=== PATIENT | male | born 1980 | race Caucasian/White ===

== ENCOUNTER 2022-10-24 18:21 | Emergency (ER) | payer OTHER, SELFPAY ==
--- NOTE | 2022-10-24 18:40 | ED.URI ---
HPI - URI/Sore Throat General Chief Complaint: Upper Respiratory Infection Stated Complaint: sorethroat Time Seen by Provider: 10/24/22 18:45 History of Present Illness HPI Narrative: 42-year-old male presents for complaint of sore throat, body aches and flashes, onset today. He states his son tested positive for strep throat today. He currently denies cough, shortness of breath, wheezing nausea, vomiting, diarrhea. He is taking ibuprofen for symptoms. Last dose about 4 hours prior to arrival. Related Data Allergies Allergy/AdvReac Type Severity Reaction Status Date / Time No Known Allergies Allergy Verified 10/24/22 18:41 Review of Systems Review of Systems: per HPI Exam Narrative: GENERAL: well-appearing, no acute distress. EYES: conjunctivae clear ENT: Mucous membranes moist. TM pearly tejada with normal light reflex bilaterally; no tragal tenderness. Oropharynx erythematous without lesions/exudate. Tonsils absent No drooling, no hoarseness, no trismus, uvula midline. No tripod positioning, hot potato voice, or soft palate swelling. NECK: Supple. No lymphadenopathy CHEST: Clear to auscultation, breath sounds equal. No respiratory distress, speaks in full sentences. HEART: Regular and tachy No murmur heard. SKIN: Warm, dry, no rash. NEURO: Alert and oriented x3. Course Course Emergency Course: Patient is aware of diagnosis, understands and agrees to treatment plan. Anticipatory guidance given. Patient agrees to follow-up as directed and is aware of reasons to seek care at the emergency department. Portions of this record may have been created with voice recognition software Level of Care: Express Care Visit MDM - URI/Sore Throat MDM Narrative Medical decision making narrative: strep result reviewed with pt. Advise supportive treatments. Patient is appropriate for outpatient treatment and follow-up. Differential Diagnosis Differential diagnosis: Likely upper respiratory infection, viral infection and pharyngitis Discharge Plan Discharge Clinical Impression: Strep pharyngitis Patient Disposition: Home, Self-Care Condition: Stable Instructions: Antibiotic Form, Strep Throat (ED) Additional Instructions: - Take the antibiotic as directed. Fever and sore throat typically resolve within one to three days. Most patients can return to work after 12 to 24 hours of antibiotic therapy, provided you are fever free and otherwise well. -Eat and drink things that are easy to swallow, like soft foods, cool liquids, tea with honey, or popsicles . -Salt water gargles and/or may use topical anesthetic ( Chloraseptic spray) or lozenges to relieve dryness or throat pain -Alternate Tylenol and ibuprofen as needed for pain and fever as directed. -Frequent hand washing or hand vegetable buncher is one of the best ways to prevent spread of infection. Throw away the toothbrush after 24hours of antibiotic. -Follow up with primary care provider in 2-3 days if condition is not improving -Go to the ER if you have trouble breathing, cannot drink enough fluids, have muffled voice or drooling, difficulty opening your mouth, or severe swelling. Prescriptions: New amoxicillin 500 mg tablet 1,000 mg PO DAILY 10 Days Qty: 20 0RF Follow-up/Referrals: Pancho,Maile Olivera APRN [Primary Care Provider] - Time of Disposition: 19:05
[2022-10-24 18:41] VITALS: BP 115/77; PULSE 142; RESP 18; TEMP 37.1; O2SAT 99
[2022-10-24] MEDS: ACETAMINOPHEN 500 MG TABLET 1000 MG PO (18:54)
[2022-10-24 19:05] VITALS: PULSE 128; TEMP 37.2
== END 2022-10-24 19:05 | disposition home or self-care (01) ==
PROVIDERS: Emergency Provider Nurse Practitioner Family; PCP Nurse Practitioner Family
DX: J02.0 Streptococcal pharyngitis (principal)
CPT/HCPCS: 87880; 99213; A9270; G0463

== ENCOUNTER 2025-06-25 15:13 | Emergency (ER) | payer OTHER, SELFPAY ==
--- NOTE | ~2025-06-25 | XR_ITS ---
EXAMINATION: XR finger 4th LT min 2V, 06/25/2025 15:30 CDT HISTORY: pain middle through distal phalanx, hit with ball COMPARISON: No comparisons available. Findings: The intermediate phalanx is dislocated towards the dorsal aspect with a displaced fracture of the proximal aspect with intra-articular extension. No significant degenerative changes. Soft tissues unremarkable. Impression: Fracture dislocation detailed above Reviewed, dictated and finalized at location A. Impression: Fracture dislocation detailed above
--- OUTSIDE RECORDS SUMMARY | 2025-06-25 15:15 | XMS_ITS | Encounter Summary ---
Author Organization [facility] Address [address] [place] [id number] Care Team Providers Care Garnishment Specialist Name Role Phone Braulio Freeman MD Unavailable [phone] Ibis Acosta PA-C Primary Care Provider [phone] Goyo Gordon Primary Care Provider [phone] Encounter Details Date Type Department Care Team (Late st Contact Info) Description 09/12/2024 INRFOOD Message Enc [facility] Family & Internal Medicine [address] [id number] [facility] Provider Needs to reset appt Social History Tobacco Use Types Packs/Day Years Used Date Smoking Tobacco: Never Smokeless Tobacco: Never Alcohol Use Standard Drinks/Week Comments Yes 0 (1 standard drink = 0.6 oz pur e alcohol) social AUDIT-C Answer Date Recorded Frequency of Alcohol Consumption 4 or more times a week 06/07/2019 Average Number of Drinks 5 or 6 019 Frequency of Binge Drinking Less than monthly PHQ-2 Answer Date Recorded Patient Health Questionnaire-2 Score 0 11/02/2023 Sex and Gender Information Value Date Recorded Sex Assigned at Not on file Legal Sex Male 4:53 PM CDT Gender Identity Not on file Sexual Orientation Not on file Occupation Industry Job Start Date Job End Date Not on file Not on file Not on file Not on file documented as of this encounter Plan of Treatment Not on file documented as of this encounter Visit Diagnoses Not on filedocumented in this encounter Care Teams Garnishment Specialist Relationship Specialty Start Date End Date Ibis Acosta PA-C [address] [address] PCP - General PHYSICIAN MANAGING JEWELER 09/22/23 12/20/24 [place] [address] [place] [address] PCP - General Physician Senior [employer] Software Engineer Medical 12/21/24 Braulio Freeman MD [facility]. JESSICA [address] [place] [id number] [place] Secretary Administrative Assistant CARDIOVASCULAR DISEASE 05/05/19 documented as of this encounter
--- OUTSIDE RECORDS SUMMARY | 2025-06-25 15:15 | XMS_ITS | Clinical Summary ---
Author Organization [facility] Address [address] [place] [address] Care Team Providers Care Gas Examiner Name Role Phone Braulio Freeman MD Unavailable [phone] Goyo Gordon Primary Care Provider [phone] Allergies No known active allergies Medications omeprazole (PRILOSEC) 40 MG capsuleIndicatio ns:Gastroesophag eal reflux disease without esophagitis Take 1 capsule (40 mg total) by mouth daily as needed. 90 capsule 3 04/28/2023 Active tiZANidine (ZANAFLEX) 4 MG tabletIndication s:Acute pain of left shoulder,Neck pain Take 1 tablet (4 mg total) by mouth nightly as needed. 30 tablet 03/21/2024 Active tadalafil (CIALIS) 20 MG tablet Take 1 tablet (20 mg total) by mouth daily as needed. 09/02/2024 Active Active Problems Problem Noted Date Diagnosed Date Neck pain 04/05/2024 Left shoulder pain 04/05/2024 GERD (gastroesophageal reflux disease) 9 PVC (pulmonary venous congestion) 06/07/2019 Immunizations Immunization Administration Dates Next Due Influenza Adult (Generic) 10/24/2023,10/2023,09/29/2022,2018 PFIZER COVID-19 (ORIGINAL FORMULATION, PURPLE CAP) mRNA, LNP-S, PF, 30 MCG/0.3 ML DOSE 12/24/2020,11/26/2020 Tdap (Generic) 04/03/2020 Family History Medical History Relation Comments Heart Attack Father Heart Disease Father Heart Attack Paternal Grandmother Relation Status Comments Brother Alive Father Alive Maternal Grandfather Alive Maternal Grandmother Alive Mother Alive Paternal Grandfather Paternal Grandmother Social History Tobacco Use Types Packs/Day Years Used Date Smoking Tobacco: Never Smokeless Tobacco: Never Tobacco Cessation:Counseling Given: No Alcohol Use Standard Drinks/Week Comments Yes 0 [...] file Not on file Not on file Last Filed Vital Signs Vital Sign Reading Time Taken Comments Blood Pressure 130/89 09/19/2024 7:17 AM CUSTOMER SERVICE AND SALES CONSULTANT Pulse 80 09/19/2024 7:17 AM CUSTOMER SERVICE AND SALES CONSULTANT Temperature 36.5 C (97.7 F) 09/19/2024 7:17 AM CUSTOMER SERVICE AND SALES CONSULTANT Respiratory Rate 16 09/19/2024 7:17 AM CUSTOMER SERVICE AND SALES CONSULTANT Oxygen Saturation 99% 09/19/2024 7:17 AM CUSTOMER SERVICE AND SALES CONSULTANT Inhaled Oxygen Concentration - - Weight 102.5 kg (226 lb) 09/19/2024 7:17 AM CUSTOMER SERVICE AND SALES CONSULTANT Height 180.3 cm (5' 11) 09/19/2024 7:17 AM CUSTOMER SERVICE AND SALES CONSULTANT Body Mass Index 31.52 09/19/2024 7:17 AM CUSTOMER SERVICE AND SALES CONSULTANT Plan of Treatment Health Maintenance Due Date Last Done Comments Hepatitis C 2000 Hepatitis B Vaccines (1 of 3 - 19+ 3-dose series) 2001 HPV Vaccines (1 - 3-dose SCD M series) 2009 PHQ-2 (Physician [place]) 10/19/2024 11/02/2023 Annual Physical 11/02/2024 11/02/2023, 04/28/2023 COVID-19 Vaccine (3 - 2024-2 6 season) 2025 12/24/2020, 11/26/2020 DTaP, Tdap and Td Vaccines ( 2 - Td or Tdap) 04/03/2030 04/03/2020 Meningococcal B Vaccine Aged Out No l onger eligible based on patient's age to complete this topic Meningococcal Vaccine Aged Out No yonny kwasi eligible based on patient's age to complete this topic Pneumococcal Vaccine: Pediatrics (0 to 5 Years) and At-Risk Patients (6 to 49 Years) Aged Out No longer eligible b ased on patient's age to complete this topic RSV Immunizations Under 20 Months Aged Out No longer eligible b ased on patient's age to complete this topic Insurance Member Subscriber Plan / Payer (Ef fective 2018-Present) Name:ROSIE WALTON Relation to Subscriber:Self Name:Shady Walton Payer ID:[id number] (NAIC) Type:Not on file Address: [place] [id number] Care Teams Gas Examiner Relationship Specialty [place] [address] [place] [address] PCP - General Physician Six Pack Packer Medical 12/21/24 Braulio Freeman MD [facility] [address] [place] [address] [employer] Displays Analyst CARDIOVASCULAR DISEASE 05/05/19
--- OUTSIDE RECORDS SUMMARY | 2025-06-25 15:15 | XMS_ITS | Clinical Summary ---
Author Organization [facility] Address [address] [place] [address] Care Team Providers Care Sole Dyer Name Role Phone Yane Linder Primary Care Provider [phone] Allergies No known active allergies Medications tadalafiL (CIALIS) 20 mg tablet TAKE 1 TABLET(20 MG) BY MOUTH DAILY NEEDED FOR ERECTILE DYSFUNCTION 20 tablet 11 Active Active Problems Problem Noted Date Diagnosed Date Melanocytic nevus of trunk 07/27/2017 Lentigo 07/27/2017 Injury of finger 03/27/2011 Surgical History Surgery Date Site/Laterality Comments MA EXPL UNDESCENDED TSTIS INGUN/SCROTAL AREA Surgery Testis Exploration Of Undescended Testis - bilateral- ?1985 (Added by TW Conv) MA TONSILLECTOMY PRIMARY/SECONDARY <AGE 12 Tonsillectomy - 2000 (Added by TW Conv) Social History Tobacco Use Types Packs/Day Years Used Date Smoking Tobacco: Never Sex and Gender Information Value Date Recorded Sex Assigned at Not on file Legal Sex Male 11:30 PM B2B ACCOUNT EXECUTIVE Gender Identity Not on file Sexual Orientation Not on file Obstetrics History Last Filed Vital Signs Vital Sign Reading Time Taken Comments Blood Pressure 122/88 09/03/2023 12:58 PM B2B ACCOUNT EXECUTIVE Pulse 85 09/03/2023 12:58 PM B2B ACCOUNT EXECUTIVE Temperature 36.6 C (97.8 F) 09/03/2023 12:58 PM B2B ACCOUNT EXECUTIVE Respiratory Rate - - Oxygen Saturation - - Inhaled Oxygen Concentration - - Weight 102.1 kg (225 lb) 09/03/2023 12:58 PM B2B ACCOUNT EXECUTIVE Height 180.3 cm (5' 11) 09/03/2023 12:58 PM B2B ACCOUNT EXECUTIVE Body Mass Index 31.38 09/03/2023 12:58 PM B2B ACCOUNT EXECUTIVE Plan of Treatment Health Maintenance Due Date Last Done Comments Depression Screening 1982 Hepatitis C Screening 1982 Varicella Vaccines (1 of 2 - 13+ 2-dose series) 1995 Hepatitis B Screening 2000 Regular Well Visit/Exam 18-64 2000 HPV Vaccines (1 - 3-dose SCDM series) 2009 Covid-19 Vaccine (3 - season) 2025 12/24/2020, 11/26/2020 Influenza Vaccine (#1) 2025 , 09/29/2022, 09/29/2022, Additional history exists DTaP/Tdap/Td Vaccine (2 - Td or Tdap) 04/03/2030 04/03/2020 Pneumococcal vaccine <65 Aged Out No longer eligible based on patient's age to complete this topic Insurance [facility] CHO[facility] PLUS [facility] CHO[facility] PLUS Care Teams Sole Dyer Relationship Specialty Start Date End Date Yane Linder PA [address] [place] [id number] PCP - General 04/13/17
[2025-06-25 15:19] VITALS: BP 131/84; PULSE 98; RESP 18; TEMP 36.6; O2SAT 100
--- NOTE | 2025-06-25 15:19 | ED.UPPEXIN ---
HPI - Extremity Injury (Upper) General Chief Complaint: Extremity Injury, Upper Stated Complaint: LT Hand 3rd Finger injury Time Seen by Provider: 06/25/25 15:19 Source: patient Mode of arrival: ambulatory Limitations: no limitations History of Present Illness HPI narrative: 45 yo M presents with pain to L ring finger. About 1 hour prior to arrival was hit with baseball that his son pitched to L hand. Pt was wearing a baseball glove when he was hit with ball. Decreased ROM to L little finger. swollen. Distal NV intact. All systems reviewed and negative except as noted above. Related Data Home Medications ?Medication ?Instructions ?Recorded ?Confirmed ?Last Taken ?Type tadalafil 20 mg tablet mg 06/25/25 Unknown History Allergies Allergy/AdvReac Type Severity Reaction Status Date / Time No Known Allergies Allergy Verified 06/25/25 15:15 PMFSH Comments At time of signature, agree with nursing past medical, surgical, social and family history. There is no relevant family history pertinent to the presenting complaint. Exam Narrative: GENERAL: This is a well-nourished, well-developed patient, in no apparent distress. HEAD: normocephalic, atraumatic. EYES: PERRL. Sclera clear/white. Vision is grossly intact. EARS: External ears normal NOSE: External nose normal NECK: Neck supple, non-tender without lymphadenopathy, masses or thyromegaly. CARDIOVASCULAR: Regular rate and rhythm without murmurs, gallops, or rubs. RESPIRATORY: Clear to auscultation. Breath sounds equal bilaterally. No wheezes, rales, or rhonchi. SKIN: warm, Dry, intact with no suspicious lesions or rash, good texture and turgor. NEURO: awake, alert, and oriented to person, place and time. There were no obvious focal neurologic abnormalities. EXTREMITIES: tender proximal, middle phalanx, PIP, deformity noted with swelling. distal NV intact Course Course Level of Care: Express Care Visit Vital Signs Vital signs: Vital Signs Temperature 36.6 C 06/25/25 15:19 Pulse Rate 98 06/25/25 15:19 Respiratory Rate 18 06/25/25 15:19 Blood Pressure 131/84 06/25/25 15:19 Pulse Oximetry 100 06/25/25 15:19 Oxygen Delivery Room Air 06/25/25 15:19 Temperature 36.6 C 06/25/25 15:19 Pulse Rate 98 06/25/25 15:19 Respiratory Rate 18 06/25/25 15:19 Blood Pressure 131/84 06/25/25 15:19 Pulse Oximetry 100 06/25/25 15:19 Oxygen Delivery Room Air 06/25/25 15:19 reviewed Transfer Transfered to: [facility] Transportation: Other (private vehicle) Transfer rationale: transferring to [facility] ER for L ring finger reduction Accepting physician: Dr. Carey MDM - Extremity Injury (Upper) MDM Narrative Medical decision making narrative: transferring to ER for reduction/evaluation of L ring finger fracture with dislocation. pt agrees with plan of care. Distal NV intact. Differential Diagnosis Differential diagnosis: Likely finger sprain, dislocation of finger, fracture of hand and other ( Finger fracture) Imaging Data My impression: agree with radiologist Radiologist's impression: EXAMINATION: XR finger 4th LT min 2V, 06/25/2025 15:30 CDT HISTORY: pain middle through distal phalanx, hit with ball COMPARISON: No comparisons available. Findings: The intermediate phalanx is dislocated towards the dorsal aspect with a displaced fracture of the proximal aspect with intra-articular extension. No significant degenerative changes. Soft tissues unremarkable. Impression: Fracture dislocation detailed above Discharge Plan Discharge Clinical Impression: Displaced fracture of phalanx of left ring finger Qualifiers: Encounter type: initial encounter Fracture type: closed Phalanx: unspecified phalanx Qualified Code(s): S62.605A - Fracture of unspecified phalanx of left ring finger, initial encounter for closed fracture Dislocation closed, finger Qualifiers: Encounter type: initial encounter Qualified Code(s): S63.259A - Unspecified dislocation of unspecified finger, initial encounter Patient Disposition: Acute Care Hospital Condition: Stable Patient Language: Macanese Prescriptions: No Action tadalafil 20 mg tablet Follow-up/Referrals: PHYSICIAN,HOLIDAY DETECTOR OPERATOR [Primary Care Provider, Internal Medicine] Time of Disposition: 16:10
== END 2025-06-25 16:15 | disposition short-term general hospital (02) ==
PROVIDERS: Emergency Provider Nurse Practitioner Family
DX: S62.605A Fracture of unspecified phalanx of left ring finger, initial encounter for closed fracture (principal); S63.255A Unspecified dislocation of left ring finger, initial encounter; W21.03XA Struck by baseball, initial encounter
CPT/HCPCS: 29125; 73140; 99214; G0463